=== PATIENT | male | born 1960 | race Caucasian/White ===

== ENCOUNTER 2016-04-16 00:19 | Emergency (ER) | payer OTHER ==
[~2016-04-16] VITALS: Ht 172.7 cm; Wt 86.2 kg
[~2016-04-16 00:19] MED LIST: PARO20TA51 PO; STRIBILD PO
[2016-04-16] MEDS ORDERED: IV SET PRIMARY 1 EA INFUS.SET MC ONE (01:23)
[2016-04-16] MEDS ORDERED: IV NS 0.9% 1,000 ML ONE (01:23)
[2016-04-16] MEDS ORDERED: INSULIN REGULAR, HUMAN 100 UNIT/ML 10 ML VIAL ONE (01:24)
[2016-04-16] MEDS ORDERED: IV NS 0.9% 1,000 ML BAG IV ONE (01:30)
[2016-04-16] MEDS ORDERED: INSULIN REGULAR, HUMAN 100 UNIT/ML 10 ML VIAL IV ONE (01:30)
[2016-04-16 02:09] LABS: BASOPHILS % (AUTO) 0.3 % (0.0-2.0); DIFF TOTAL % 100 %; EOSINOPHILS % (AUTO) 0.5 % (0.0-6.0); HEMATOCRIT 38 % (39-51); HEMOGLOBIN 13.1 g/dL (13.5-17.5); LYMPHOCYTES # (AUTO) 1.7 /CMM (0.8-4.8); LYMPHOCYTES % (AUTO) 32.1 % (20.0-44.0); MEAN CORPUSCULAR HEMOGLOBIN 31 PG (26.0-33.0); MEAN CORPUSCULAR HGB CONC 35 g/dl (31.0-36.0); MEAN CORPUSCULAR VOLUME 90 fL (80-96); MONOCYTES # (AUTO) 0.3 /CMM (0.1-1.30); MONOCYTES % (AUTO) 5.8 % (2.0-12.0); NEUTROPHILS # (AUTO) 3.3 /CMM (1.8-8.9); NEUTROPHILS % (AUTO) 61.3 % (43.0-81.0); PLATELET COUNT (AUTO) 231 /CMM (150-450); RED BLOOD CELL COUNT(AUTO) 4.21 MIL/uL (4.5-6.0); WHITE BLOOD COUNT (AUTO) 5.4 K/uL (4.3-11.0)
[2016-04-16 02:11] LABS: KETONES,URINE 1+ (NEGATIVE); LEUKOCYTE ESTERASE ,URINE NEGATIVE (NEGATIVE)
[2016-04-16 02:17] LABS: CANNABINOID, URINE NEGATIVE (NEGATIVE); PHENCYCLIDINE SCREEN,URINE NEGATIVE (NEGATIVE)
[2016-04-16 02:25] LABS: ADD UA MICROSCOPIC YES
[2016-04-16 02:27] LABS: ADD URINE CULTURE NO; RBC,URINE NONE SEEN /HPF (0-2); WBC,URINE NONE SEEN /HPF (0-3)
[2016-04-16 02:29] LABS: ALBUMIN 3.5 g/dL (3.4-5.0); BILIRUBIN,DIRECT 0.1 mg/dL (0.0-0.2); BILIRUBIN,TOTAL 0.4 mg/dL (0.2-1.0); CALCIUM, SERUM 8.7 mg/dL (8.5-10.1); CREATININE 0.9 mg/dL (0.6-1.3); POTASSIUM 4.6 mmol/L (3.5-5.1); TOTAL PROTEIN, SERUM 7.8 g/dL (6.4-8.2)
[2016-04-16 02:31] LABS: INDIRECT BILIRUBIN 0.3 mg/dL (0.0-1.1); SALICYLATE 2.3 mg/dL (2.8-20.0)
[2016-04-16 06:08] VITALS: BP 121/71
== END 2016-04-16 06:09 | disposition home or self-care (01) ==
LOC: ER 00:22
DX: E10.65 Type 1 diabetes mellitus with hyperglycemia (principal); F10.121 Alcohol abuse with intoxication delirium; R51 Headache; F17.200 Nicotine dependence, unspecified, uncomplicated; Z72.0 Tobacco use; Z71.6 Tobacco abuse counseling; Z79.4 Long term (current) use of insulin; Z59.0 Homelessness
CPT/HCPCS: 36415; 70450-TC; 72125-TC; 80048-TC; 80076-TC; 80305; 81000-TC; 82010-TC; 82962-TC; 85025-TC; A4606; G6038-TC; G6039-TC; G6040-TC; J1815; J7030; Z7610

== ENCOUNTER 2017-03-06 23:45 | Inpatient (IN) | payer OTHER ==
[~2017-03-06] VITALS: Ht 182.9 cm; Wt 77.1 kg
--- NOTE | 2017-03-06 23:45 | NUR ---
PT TO ER BED 7. PT BIB SELF, PT C/O WEAKNESS ON LEFT ARM AND LEFT LEG X [address] SU[address] DIRECTOR. DR TEIXEIRA AT BEDSIDE FOR EVAL. CODE STROKE CALLED. PT PLACED IN A GOWN AND ON MARKETING TRAINEE. VSS/RESP EVEN UNLABORED/NAD NOTED/SKIN WARM AND DRY/DENIES N-V-D/AOX4. EMT AT BEDSIDE FOR EKG. 18G IV TO R AC USING ASEPTIC TECH, BLOOD HANDED OVER TO LAB AT BEDSIDE. IV FLUSHES EASILY WITH NS.
--- NOTE | 2017-03-07 00:02 | NUR ---
PT TO CT VIA STRETCHER WITH ELLIOT. RUPAL.
[2017-03-07] MEDS ORDERED: CT SWABBABLE VALVE TRANS SET 1 EA INFUS.SET MC ONE (00:03)
[2017-03-07] MEDS ORDERED: IV NS 0.9% 250 ML IV ONE (00:03)
[2017-03-07] MEDS ORDERED: IOHEXOL-350 100 ML VIAL IV ONE (00:03)
[2017-03-07 00:16] LABS: BASOPHILS % (AUTO) 0.7 % (0.0-2.0); EOSINOPHILS # (AUTO) 0.1 /CMM (0.0-0.7); EOSINOPHILS % (AUTO) 1.6 % (0.0-6.0); HEMATOCRIT 43 % (39-51); HEMOGLOBIN 15.3 g/dL (13.5-17.5); LYMPHOCYTES # (AUTO) 2.4 /CMM (0.8-4.8); LYMPHOCYTES % (AUTO) 39.3 % (20.0-44.0); MEAN CORPUSCULAR HEMOGLOBIN 33 PG (26.0-33.0); MEAN CORPUSCULAR HGB CONC 36 g/dl (31.0-36.0); MEAN CORPUSCULAR VOLUME 93 fL (80-96); MONOCYTES # (AUTO) 0.5 /CMM (0.1-1.30); MONOCYTES % (AUTO) 7.9 % (2.0-12.0); NEUTROPHILS # (AUTO) 3.1 /CMM (1.8-8.9); NEUTROPHILS % (AUTO) 50.5 % (43.0-81.0); PLATELET COUNT (AUTO) 331 /CMM (150-450); RDW COEFFICIENT OF VARIATION 13.6 (11.5-15.0); RED BLOOD CELL COUNT(AUTO) 4.67 MIL/uL (4.5-6.0); WHITE BLOOD COUNT (AUTO) 6.2 K/uL (4.3-11.0)
--- NOTE | 2017-03-07 00:20 | NUR ---
PT BACK FROM CT WITH RN.
[2017-03-07 00:21] LABS: INR 0.9 (0.87-1.13); PROTHROMBIN TIME 9.3 SECS (9.5-12.7)
--- NOTE | 2017-03-07 00:24 | NUR ---
TELE NEUROLOGY ACTIVATED WITH DR ROGERS. RN AT BEDSIDE WITH DR TEIXEIRA.
[2017-03-07 00:26] LABS: CALCIUM, SERUM 8.4 mg/dL (8.5-10.1); CARBON DIOXIDE 25 mmol/L (21-32); CHLORIDE 97 mmol/L (98-107); POTASSIUM 4.3 mmol/L (3.5-5.1); SODIUM SERUM 134 mmol/L (136-145); UREA NITROGEN, BLOOD 17 mg/dL (7-18)
[2017-03-07 00:27] LABS: GLUCOSE 438 mg/dL (74-106)
[2017-03-07 00:31] LABS: TROPONIN I < 0.017 ng/mL (0.00-0.056)
--- NOTE | 2017-03-07 01:00 | NUR ---
RN CONTINUES TO MONITOR PT AT BEDSIDE PROVIDING SAFETY AND COMFORT MEASURES.
[2017-03-07] MEDS ORDERED: INSULIN REGULAR, HUMAN 100 UNIT/ML 10 ML VIAL ONE (01:16)
[2017-03-07] MEDS ORDERED: IV NS 0.9% 1,000 ML BAG IV ONE (01:30)
[2017-03-07] MEDS ORDERED: INSULIN REGULAR, HUMAN 100 UNIT/ML 3 ML VIAL IV ONE (01:30)
--- NOTE | 2017-03-07 01:32 | NUR ---
TELE BED 115-1
--- NOTE | 2017-03-07 01:48 | NUR ---
RN CONTINUES TO MONITOR PT AT BEDSIDE PROVIDING SAFETY AND COMFORT MEASURES. VSS.
[2017-03-07] MEDS ORDERED: INSU3INS6 SUBCUT (01:51)
[2017-03-07] MEDS ORDERED: INSU100V28 IJ (01:52)
[2017-03-07] MEDS ORDERED: ELVI1TAB3 PO (01:53)
--- NOTE | 2017-03-07 02:02 | NUR ---
REPORT CALLED TO RENATA FOR NILDA. PT TO TELE 115-1.
--- NOTE | 2017-03-07 02:24 | NUR ---
PT TRANSPORTED TO [place] [id number] VIA STRETCHER WITH RN, ACLS PROTOCOL.
[2017-03-07] MEDS ORDERED: ONDANSETRON HCL/PF 4 MG/2 ML VIAL IVP PRN (03:00)
[2017-03-07] MEDS ORDERED: INSULIN DETEMIR 100 UNIT/ML CARTRIDGE SQ SCH (03:00)
[2017-03-07] MEDS ORDERED: MAGNESIUM HYDROXIDE 30 ML UDC PO PRN (03:00)
[2017-03-07] MEDS ORDERED: HYDROCODONE/APAP 5/325MG 1 EACH TABLET PO PRN (03:00)
[2017-03-07] MEDS ORDERED: ACETAMINOPHEN 325 MG TABLET PO PRN (03:00)
[2017-03-07] MEDS ORDERED: DEXTROSE 50%-WATER 50 ML DISP.SYRIN IV PRN (03:00)
[2017-03-07] MEDS ORDERED: *INSULIN REGULAR(HUMULIN R)HUM 100 UNIT/ML VIAL SQ PRN (03:00)
[2017-03-07] MEDS ORDERED: ATORVASTATIN 40 MG TABLET ONE (03:49)
[2017-03-07] MEDS: ATORVASTATIN 40 MG TABLET PO SCH ×2 (03:51→21:17)
[2017-03-07 04:00] VITALS: BP 99/57
--- NOTE | 2017-03-07 06:32 | NUR ---
PARTY HOST/HOSTESS CLOSING NOTES PATIENT IS SLEEPING. NO SIGNS OF DISTRESS OR SOB. BED MOBILITY IS INDEPENDENT. MRSA NARES SWAB DONE PER PROTOCOL. ALL DUE MEDS GIVEN. BODY CHECK DONE WITH NO SKIN BREAK DOWN. SALINE LOCK ON RIGHT AC IS INTACT WITH NO PHLEBITIS AND NO INFILTRATION. BED ALARM ON. CALL LIGHT WITHIN REACH.
[2017-03-07 06:35] LABS: BASOPHILS % (AUTO) 0.2 % (0.0-2.0); EOSINOPHILS # (AUTO) 0.1 /CMM (0.0-0.7); HEMATOCRIT 37 % (39-51); HEMOGLOBIN 12.9 g/dL (13.5-17.5); LYMPHOCYTES # (AUTO) 1.7 /CMM (0.8-4.8); LYMPHOCYTES % (AUTO) 38.2 % (20.0-44.0); MEAN CORPUSCULAR HEMOGLOBIN 32 PG (26.0-33.0); MEAN CORPUSCULAR HGB CONC 35 g/dl (31.0-36.0); MEAN CORPUSCULAR VOLUME 93 fL (80-96); MONOCYTES # (AUTO) 0.6 /CMM (0.1-1.30); MONOCYTES % (AUTO) 14.6 % (2.0-12.0); NEUTROPHILS # (AUTO) 1.9 /CMM (1.8-8.9); PLATELET COUNT (AUTO) 280 /CMM (150-450); RDW COEFFICIENT OF VARIATION 13.6 (11.5-15.0); RED BLOOD CELL COUNT(AUTO) 4.01 MIL/uL (4.5-6.0); WHITE BLOOD COUNT (AUTO) 4.3 K/uL (4.3-11.0)
[2017-03-07 06:50] LABS: TROPONIN I < 0.017 ng/mL (0.00-0.056)
[2017-03-07 07:09] LABS: ALANINE AMINOTRANSFERASE 24 U/L (12-78); ALKALINE PHOSPHATASE 137 U/L (46-116); ASPARTATE AMINOTRANSFERASE 13 U/L (15-37); B-TYPE NATRIURETIC PEPTIDE 23 PG/ML (0-125); BILIRUBIN,TOTAL 0.3 mg/dL (0.2-1.0); CALCIUM, SERUM 8.1 mg/dL (8.5-10.1); CARBON DIOXIDE 19 mmol/L (21-32); CHLORIDE 104 mmol/L (98-107); CREATININE 0.8 mg/dL (0.6-1.3); GLUCOSE 259 mg/dL (74-106); MAGNESIUM 1.8 mg/dL (1.8-2.4); PHOSPHORUS 3.1 mg/dL (2.5-4.9); SODIUM SERUM 138 mmol/L (136-145); TOTAL PROTEIN, SERUM 6.8 g/dL (6.4-8.2); UREA NITROGEN, BLOOD 15 mg/dL (7-18)
[2017-03-07 07:15] LABS: CHOLESTEROL 186 mg/dL (<200); HDL CHOLESTEROL 25 mg/dL (40-60); LDL 80 mg/dL (0-99); THYROID STIMULATING HORMONE 1.082 uIU/mL (0.358-3.74); TRIGLYCERIDES 629 mg/dL (30-150)
--- NOTE | 2017-03-07 07:15 | NUR ---
RN NOTES RECEIVED PT ON BED, A/Ox3, L SIDED WEAKNESS NOTED , RESPIRATION EVEN AND UNLABORED, ON RA , GHAZAL ANY DISTRESS , ON TELE, SR HR IN 80'S , R AC IV SITE G 18 CDI, SR UP x3, CALL LIGHT WITHIN EASY REACH, WILL CONTINUE TO MONITOR PT CLSOELY FOR ANY NEUROLOGICAL CHANGES.
[2017-03-07] MEDS: BLOOD SUGAR DIAGNOSTIC 1 EACH STRIP IN SCH ×4 (07:30→21:17)
[2017-03-07 08:00] VITALS: BP 126/75
[2017-03-07] MEDS: DOCUSATE SODIUM 100 MG CAPSULE PO SCH ×2 (08:31→16:54)
[2017-03-07] MEDS: PANTOPRAZOLE 40 MG TABLET.DR PO SCH (08:31)
[2017-03-07] MEDS: PAROXETINE HCL 20 MG TABLET PO SCH (08:31)
[2017-03-07] MEDS: ASPIRIN EC 81 MG TABLET.DR PO SCH (08:36)
[2017-03-07] MEDS ORDERED: Elviteg/Cobi/Emtric/Tenofo Ala (Genvoya Tablet) 1 EACH) PO SCH (09:00)
[2017-03-07] MEDS ORDERED: CLOPIDOGREL BISULFATE 75 MG TABLET PO SCH (09:00)
[2017-03-07] MEDS ORDERED: ASPIRIN EC 325 MG TABLET.DR PO SCH (09:00)
[2017-03-07] MEDS: INSULIN REGULAR, HUMAN 100 UNIT/ML 3 ML VIAL SQ PRN ×2 (09:19→16:53)
[2017-03-07] MEDS: INSULIN DETEMIR 100 UNIT/ML CARTRIDGE SQ SCH ×2 (10:02→21:23)
[2017-03-07 12:00] VITALS: BP 120/71
[2017-03-07 16:00] VITALS: BP 116/73
--- NOTE | 2017-03-07 16:00 | NUR ---
RN NOTES PT STABLE , NO DRIFT NOTED ON L ARM , PT STATED ,HE FEEL MUCH BETTER , HERRERA FLASK PUSHER NOTIFIED, MRI CHECK LIST DONE .
--- NOTE | 2017-03-07 16:26 | NUR ---
SPOKE TO PATIENTS NURSE SAUNDRA, TOLD HER BOXING INSPECTOR WILL BE IN WITHIN AN HOUR AND HAVE THE MRI CHECKLIST READY.
--- NOTE | 2017-03-07 18:54 | NUR ---
RN NOTES PT A/Ox4, RESPIRATION EVEN AND UNLABORED, MRI DONE , NO DISTRESS NOTED, WILL ENDORSE TO RESERVATIONIST NURSE FOR NILDA .
[2017-03-07 20:00] VITALS: BP 137/89
[2017-03-07] MEDS ORDERED: INSULIN GLARGINE, 100 UNIT/ML CARTRIDGE SQ SCH (22:00)
[2017-03-08] VITALS: BP 128/84
[2017-03-08 04:00] VITALS: BP_SYST 112; BP_SYST 123; BP_DIAS 57; BP_DIAS 84
--- NOTE | 2017-03-08 07:10 | NUR ---
NEUROPHYSIOLOGICAL TECHNICIAN NOTES PATIENT IN BED, AWAKE, A/0 X4. SINUS RHYTHM HR 78 IN THE MONITOR. TOLERATING ROOM AIR, BREATHING EVEN AND NON LABORED, NO SOB. IV IN RIGHT AC G18 PATENT AND INTACT, FLUSHES WELL. CALL LIGHT WITHIN REACH. WILL CONT TO MONITOR.
[2017-03-08] MEDS: BLOOD SUGAR DIAGNOSTIC 1 EACH STRIP IN SCH ×2 (07:51→11:33)
[2017-03-08] MEDS: INSULIN REGULAR, HUMAN 100 UNIT/ML 3 ML VIAL SQ PRN ×2 (07:52→11:34)
[2017-03-08] MEDS: PANTOPRAZOLE 40 MG TABLET.DR PO SCH ×2 (07:56→08:11)
[2017-03-08 08:00] VITALS: BP 123/71
[2017-03-08] MEDS: ASPIRIN EC 81 MG TABLET.DR PO SCH (08:11)
[2017-03-08] MEDS: PAROXETINE HCL 20 MG TABLET PO SCH (08:12)
[2017-03-08] MEDS: DOCUSATE SODIUM 100 MG CAPSULE PO SCH (08:12)
[2017-03-08] MEDS: INSULIN DETEMIR 100 UNIT/ML CARTRIDGE SQ SCH (08:15)
[2017-03-08 12:00] VITALS: BP 114/63
[2017-03-08] MEDS ORDERED: ATOR40TA PO (12:31)
[2017-03-08] MEDS ORDERED: ASPI-991 PO (12:31)
--- NOTE | 2017-03-08 12:31 | NUR ---
PATIENT TO BE DISCHARGED HOME ORDERED.
--- NOTE | 2017-03-08 13:04 | NUR ---
MACHINE FINISHERGROOMING SALON MANAGER NOTES DR. WHITING SPOKE TO THE PATIENT TODAY AT THE BEDSIDE. PATIENT HAS BEEN CLEARED FOR DISCHARGE HOME BY MD. VS REMAINS STABLE, PATIENT IS AMBULATORY, STEADY GAIT AND BALANCE. ALL EXTREMITIES WITH FULL ROM WITHOUT DIFFICULTY, SPEECH CLEAR. IVC IN RIGHT AC REMOVED, GAUZE APPLIED, NO BLEEDING NOTED. LEADS REMOVED FROM THE CHEST. INSTRUCTED PATIENT TO WAIT FOR DISCHARGE INSTRUCTION, AND SIGNING OF DISCHARGE PAPERS, PATIENT VERBALIZED UNDERSTANDING AND STATED OK. AFTER PRINT OUT OF DC PAPERS, PATIENT NOT FOUND IN THE ROOM. CALLED LISTED PHONE NUMBERS IN THE FACE SHEET, BUT NUMBERS WAS DISCONNECTED AND NON WORKING NUMBERS. CHARGE NURSE INFORMED. DR. JOHANNE WALKER NOTIFIED.
== END 2017-03-08 13:23 | disposition home or self-care (01) | DRG 47 ==
LOC: ER 23:54 → TELE1 03-07 01:59
PROVIDERS: ADMIT Internal Medicine; ATTEND Nurse Practitioner Acute Care
DX: G45.9 Transient cerebral ischemic attack, unspecified (principal); E10.65 Type 1 diabetes mellitus with hyperglycemia; E78.1 Pure hyperglyceridemia; F10.129 Alcohol abuse with intoxication, unspecified; Z79.4 Long term (current) use of insulin; Z86.73 Personal history of transient ischemic attack (TIA), and cerebral infarction without residual deficits; F17.200 Nicotine dependence, unspecified, uncomplicated; Z79.899 Other long term (current) drug therapy; Y90.7 Blood alcohol level of 200-239 mg/100 ml; Z59.0 Homelessness; F32.9 Major depressive disorder, single episode, unspecified
CPT/HCPCS: 36415; 70450-TC; 70496-TC; 70498-TC; 70551-TC; 71010-TC; 80048-TC; 80053-TC; 80061-TC; 82962-TC; 83735-TC; 83880; 84100-TC; 84443-TC; 84484-TC; 85025-TC; 85730-TC; 86592; 87081-TC; 93307-TC; A4606; A6402; G0480; J1815; J7030; J7050; Q9967; Z7610

== ENCOUNTER 2018-03-03 21:34 | Emergency (ER) | END 2018-03-04 07:31 | disposition home or self-care (01) | DX: F10.121 Alcohol abuse with intoxication delirium (principal); R45.851 Suicidal ideations; E11.65 Type 2 diabetes mellitus with hyperglycemia; I10 Essential (primary) hypertension; F17.200 Nicotine dependence, unspecified, uncomplicated; Y90.8 Blood alcohol level of 240 mg/100 ml or more; Z59.0 Homelessness; Z91.14 Patient's other noncompliance with medication regimen; Z79.82 Long term (current) use of aspirin; Z79.4 Long term (current) use of insulin ==

== ENCOUNTER 2018-03-04 15:09 | Emergency (ER) | payer OTHER ==
[~2018-03-04] VITALS: Ht 175.3 cm; Wt 83.0 kg
[2018-03-04 04:12] VITALS: BP 130/84
[~2018-03-04 15:09] MED LIST changes: +ASPI-1152 PO; +ATOR40TA PO; +ELVI1TAB3 PO; +INSU100V28 IJ; +INSU3INS6 SUBCUT; +PARO-144 PO; -PARO20TA51 PO
--- NOTE | 2018-03-04 15:15 | NUR ---
PATIENT BIBRA AFTER BAR CALLED 911 FOR BEING OVERLY INTOXICATED AND NOT WAKING UP. AT THIS TIME PATIENT ALERT AND ORIENTED. JUST REFUSING TO INTERACT WITH STAFF AT THIS TIME
--- NOTE | 2018-03-04 15:29 | NUR ---
patient refusing to speak with rn and md at this time. vss. no acute distress
[2018-03-04] MEDS ORDERED: LORAZEPAM 1 MG TABLET ONE (15:55)
[2018-03-04] MEDS ORDERED: INSULIN REGULAR, HUMAN 100 UNIT/ML 10 ML VIAL ONE (15:59)
[2018-03-04] MEDS: INSULIN REGULAR, HUMAN 100 UNIT/ML 10 ML VIAL IV ONE (16:06)
[2018-03-04] MEDS: IV NS 0.9% 1,000 ML BAG IV ONE (16:06)
--- NOTE | 2018-03-04 16:06 | NUR ---
PATIENT REFUSING IV ACCESS. LABS. AGREEABLE TO INSULIN. ATE SNACKS PROVIDED WELL. MOVED TO BED 15 FOR OBSERVATION. PATIENT ALERT ORIENTED. Addendum: 03/04/18 at 1611 by WILMER MD UGARTE
--- NOTE | 2018-03-04 16:13 | NUR ---
PATIENT AMBULATING WITH STEADY GATE. A/0X3 HEADING FOR THE DOOR. EXPLAINED MD ORDERS AND CARE PLAN BUT PATIENT REFUSING TO GO BACK TO BED OR RECEIVE ANY IVF/BLOOD WORK. REFUSING NURSING CARE. MD AWARE. PATIENT ELOPED.
== END 2018-03-04 16:17 | disposition left against medical advice (07) ==
LOC: ER 15:11
DX: F10.129 Alcohol abuse with intoxication, unspecified (principal); I10 Essential (primary) hypertension; E11.9 Type 2 diabetes mellitus without complications; F17.200 Nicotine dependence, unspecified, uncomplicated; Z79.82 Long term (current) use of aspirin; Z79.4 Long term (current) use of insulin; Z79.899 Other long term (current) drug therapy; Z60.2 Problems related to living alone
CPT/HCPCS: 82962-TC; A4606; J1815; J7030; Z7610